=== PATIENT | female | born 1970 | race Caucasian/White ===

== ENCOUNTER 2018-12-28 08:59 | Inpatient (IN) | payer MEDICARE, OTHER ==
[~2018-12-28] VITALS: Ht 157.5 cm; Wt 93.7 kg
--- NOTE | 2018-12-28 08:59 | NUR ---
JOURNALISM INTERN: [facility] AV[facility] AND SENT STRAIGHT TO CT W/ SAMSON BEJARANO & PT ON MONITOR
--- NOTE | 2018-12-28 08:59 | NUR ---
48 YR OLD FEMALE ARRIVED VIA EMS, PER REPORT PT WAS RECEIVING CERVICAL FACET INJECTION. HAD RECEIVED 1 MG VERSED, 50MCG FENTANLY. PT HAD SYNCOPAL EPISODE LASTING APPROX 30 SECONDS. PER PROCEDURE REPORT PT HAD LEFT EYE DEVIATION, RT FACIAL DROOP, SLURRED SPEECH, NAUSE, DIZZINESS, BRAIN FEELS FUNNY. PT ARRIVED WITH 22G IN LEFT HAND, 18G, RFA. BS 187, GIVEN ZOFRAN IN ROUTE. PT STRAIGHT TO CT VIA GURNEY.
[2018-12-28] MEDS ORDERED: ONDANSETRON 2MG/ML, 2ML ONE ×2 (09:11→12:36)
--- NOTE | 2018-12-28 09:20 | NUR ---
PT RETURN TO ROOM, PT RETCHING, MEDICATED WITH ZOFRAN. DR SMITH AT BEDSIDE TO EVAL PT
[2018-12-28] MEDS ORDERED: ONDANSETRON 2MG/ML, 2ML IVPush ONE (09:30)
[2018-12-28] MEDS ORDERED: OMNIPAQUE 350 MG/ML, 100ML BOTTLE ONE (09:36)
--- NOTE | 2018-12-28 09:38 | NUR ---
NEUROLOGIST VIA TELE MONITOR TO LEVI RODRIGUEZ.
--- NOTE | 2018-12-28 09:58 | NUR ---
REPORT TO YAJAIRA MCKEON
[2018-12-28 09:59] LABS: BASOPHILS # (AUTO) 0.04 x10^3/uL (0-0.1); BASOPHILS % (AUTO) 0 % (0-1); EOSINOPHILS # (AUTO) 0.12 x10^3/uL (0-0.4); EOSINOPHILS % (AUTO) 1 % (1-7); LYMPHOCYTES # (AUTO) 1.17 x10^3/uL (1-3.4); LYMPHOCYTES % (AUTO) 14 % (22-44); MD NO; MEAN CORPUSCULAR HEMOGLOBIN 31.2 pg (27.0-34.8); MEAN CORPUSCULAR HGB CONC 34.2 g/dL (32.4-35.8); MEAN CORPUSCULAR VOLUME 91.3 fL (80-100); MONOCYTES # (AUTO) 0.35 x10^3/uL (0.2-0.8); MONOCYTES % (AUTO) 4 % (2-9); NEUTROPHILS # (AUTO) 6.88 x10^3/uL (1.8-6.8); NEUTROPHILS % (AUTO) 81 % (42-75); PLATELET COUNT 194 x10^3/uL (130-400); RED BLOOD COUNT 5.33 x10^6/uL (3.82-5.3); RED CELL DISTRIBUTION WIDTH 13.6 % (9.6-15.2)
[2018-12-28 10:04] LABS: INTERNATIONAL NORMALIZED RATIO 0.96 (0.93-1.1); PROTHROMBIN TIME 10.1 Seconds (9.6-11.5)
--- NOTE | 2018-12-28 10:05 | NUR ---
ASSUMED CARE OF PT AT THIS TIME. PT REPORTS MILD VASQEUZ NOW AND SYMPTOMS SEEM TO BE RESOLVING. PT REPORTED TO MOTHER ON THE PHONE, ""I AM COMING AROUND." PT SPEECH IS SLURRED STILL AND PER FATHER AT BEDSIDE SHE DOES NOT USUALLY SLUR HER SPEECH. PT SEEN BY NEUROLOGIST AND AWAITING FURTHER ORDERS.
[2018-12-28] MEDS ORDERED: KLONOPIN PO (10:19)
[2018-12-28] MEDS ORDERED: DIAZ5TAB PO (10:19)
[2018-12-28] MEDS ORDERED: TRAZ150T62 PO (10:19)
[2018-12-28] MEDS ORDERED: POTASSIUM PO (10:19)
[2018-12-28] MEDS ORDERED: CHOL5000 PO (10:19)
[2018-12-28] MEDS ORDERED: PROMETHAZINE 25 MG/ML, 1ML ONE ×2 (10:28→14:36)
[2018-12-28] MEDS ORDERED: FAMOTIDINE 20 MG/2 ML ONE (10:28)
[2018-12-28] MEDS ORDERED: FAMOTIDINE 20 MG/2 ML IVP ONE (10:30)
[2018-12-28] MEDS ORDERED: PROMETHAZINE 25 MG/ML, 1ML IM ONE (10:30)
--- NOTE | 2018-12-28 11:17 | NUR ---
PT TO HAVE MRI BUT DUE TO CLAUSTROPHOBIA, MRI TO BE DONE WITH ANESTHESIA AT 1330. PT TO BE ADMITTED TO FLOOR PRIOR. PT MOVED TO ROOM 25. PT VOIDED AND LINENS CHANGED. PHENERGAN SEEMS TO HAVE HELPED NAUSEA.
--- NOTE | 2018-12-28 11:24 | NUR ---
PT MOVED TO ROOM 26, REPORT RECEIVED, CARE ASSUMED.
[2018-12-28] MEDS ORDERED: SODIUM CHLORIDE FLUSH 10ML SYR IVF PRN (11:30)
--- NOTE | 2018-12-28 11:39 | NUR ---
PT STATES "FEELING BETTER." THEN STATES "I HAVE NEVER FELT THIS BAD BEFORE WITH THE INJECTIONS. I DONT KNOW WHAT HAPPENED" PT AND PTS DAD EFREN [phone] UP DATED ON POC. PT TO BE ADMITTED, WAITING FOR ROOM ASSIGNMENT, MRI ORDER. UNDERSTANDING VERBALIZED.
--- NOTE | 2018-12-28 12:25 | NUR ---
PT TO MRI VIA [facility].
[2018-12-28] MEDS ORDERED: PHENYLEPHRINE 10 MG/ML ONE (12:36)
[2018-12-28] MEDS ORDERED: PROPOFOL 10 MG/ML, 20ML ONE (12:36)
[2018-12-28] MEDS ORDERED: GADOBUTROL 10 MMOL/10 ML PFS ONE (13:41)
--- NOTE | 2018-12-28 13:51 | NUR ---
REPORT CALLED TO MALCOLM MCKEON, POC DISCUSSED. PT TO GO TO PACU AFTER MRI.
[2018-12-28] MEDS ORDERED: HALOPERIDOL 5 MG/ML ONE (14:17)
[2018-12-28] MEDS ORDERED: DIAZEPAM 5 MG/ML, 2ML IVPush PRN (14:30)
[2018-12-28] MEDS ORDERED: OXYcodone 5 MG/5 ML ORAL.SOL UDC PO PRN (14:30)
[2018-12-28] MEDS ORDERED: MEPERIDINE/PF 25MG/0.5ML IVPush PRN (14:30)
[2018-12-28] MEDS ORDERED: HALOPERIDOL 5 MG/ML IV PRN (14:30)
[2018-12-28] MEDS ORDERED: PROMETHAZINE 25 MG/ML, 1ML IV PRN (14:30)
[2018-12-28] MEDS ORDERED: FENTANYL PF 100 MCG/2ML IV PRN (14:30)
[2018-12-28] MEDS ORDERED: HYDROmorphone 2 MG/ML, 1ML IVPush PRN (14:30)
[2018-12-28] MEDS ORDERED: ONDANSETRON 2MG/ML, 2ML IVPush PRN (15:30)
[2018-12-28 15:37] VITALS: BP 139/76
[2018-12-28 16:10] LABS: HEMOGLOBIN A1C 5.5 % (4.2-6.3)
[2018-12-28 16:45] LABS: HCT (SEDRATE) 48.7 % (34.6-47.8)
[2018-12-28] MEDS: POTASSIUM CHLORIDE 20 MEQ in LACTATED RINGERS 1,000 ML IV SCH (17:25)
[2018-12-28 19:09] VITALS: BP 147/90
[2018-12-28] MEDS ORDERED: NITROGLYCERIN 0.4 MG BOTTLE (25 TABS) SL ONE (19:10)
[2018-12-28 19:26] VITALS: BP 128/80
[2018-12-28] MEDS ORDERED: NITROGLYCERIN 0.4 MG BOTTLE (25 TABS) SL PRN (19:30)
[2018-12-28 20:04] LABS: TROPONIN I 0.564 ng/mL (0.000-0.045)
[2018-12-28] MEDS ORDERED: morphine SULFATE 10 MG/ML, 1ML IVPush ONE (21:00)
[2018-12-28] MEDS: TRAZODONE 150MG TABLET PO SCH (21:55)
[2018-12-28] MEDS: PROMETHAZINE 25 MG/ML, 1ML IM PRN (21:55)
[2018-12-29 01:34] LABS: MEAN CORPUSCULAR HEMOGLOBIN 30.9 pg (27.0-34.8); MEAN CORPUSCULAR HGB CONC 33.1 g/dL (32.4-35.8); MEAN CORPUSCULAR VOLUME 93.3 fL (80-100); MEAN PLATELET VOLUME 9.1 fL (7.4-10.4); PLATELET COUNT 248 x10^3/uL (130-400); RED BLOOD COUNT 5.47 x10^6/uL (3.82-5.3); RED CELL DISTRIBUTION WIDTH 13.9 % (9.6-15.2)
[2018-12-29 01:39] VITALS: BP 130/76
[2018-12-29 01:44] LABS: ALBUMIN 4.1 g/dL (3.4-5.0); ANION GAP 7 mmol/L (5-15); CALCIUM 8.9 mg/dL (8.5-10.1); CHLORIDE 109 mmol/L (98-107)
[2018-12-29 01:47] LABS: ALANINE AMINOTRANSFERASE 23 U/L (12-78); ALKALINE PHOSPHATASE 110 U/L (45-117); BILIRUBIN,TOTAL 0.6 mg/dL (0.2-1.0); CREATININE 0.66 mg/dL (0.55-1.02); TOTAL PROTEIN 7.3 g/dL (6.4-8.2)
[2018-12-29 01:53] LABS: BASOPHILS # (AUTO) 0.02 x10^3/uL (0-0.1); BASOPHILS % (AUTO) 0 % (0-1); EOSINOPHILS % (AUTO) 0 % (1-7); LYMPHOCYTES # (AUTO) 0.64 x10^3/uL (1-3.4); LYMPHOCYTES % (AUTO) 4 % (22-44); MD NO; MONOCYTES # (AUTO) 0.85 x10^3/uL (0.2-0.8); MONOCYTES % (AUTO) 6 % (2-9); NEUTROPHILS # (AUTO) 13.97 x10^3/uL (1.8-6.8); NEUTROPHILS % (AUTO) 90 % (42-75)
[2018-12-29] MEDS ORDERED: NITROGLYCERIN 0.4 MG BOTTLE (25 TABS) SL PRN (02:30)
[2018-12-29] MEDS ORDERED: HEPARIN 5,000 UNITS/ML, 1ML IV ONE (02:30)
[2018-12-29] MEDS: ASPIRIN 325 MG TABLET EC PO SCH ×3 (03:57→22:22)
[2018-12-29] MEDS: HEPARIN 25,000 UNITS/500ML PMX 500 ML IV PRN (03:57)
[2018-12-29] MEDS: PROMETHAZINE 25 MG/ML, 1ML IM PRN ×3 (04:24→20:09)
[2018-12-29] MEDS ORDERED: PANTOPRAZOLE 40 MG IV IVPush SCH (07:30)
[2018-12-29 08:21] VITALS: BP 110/66
[2018-12-29] MEDS: CHOLECALCIFEROL 5,000u TAB PO SCH (09:15)
[2018-12-29] MEDS: HEPARIN 5,000 UNITS/ML, 1ML IV PRN ×2 (10:18→17:05)
[2018-12-29 14:02] VITALS: BP 114/63
[2018-12-29] MEDS: POTASSIUM CHLORIDE 20 MEQ in LACTATED RINGERS 1,000 ML IV SCH (14:54)
[2018-12-29] MEDS: TRAZODONE 150MG TABLET PO SCH (20:27)
[2018-12-29] MEDS ORDERED: ATORVASTATIN 40 MG TABLET PO SCH (21:00)
[2018-12-29 21:08] VITALS: BP 112/78
[2018-12-30 02:15] VITALS: BP 115/78
[2018-12-30] MEDS ORDERED: PANTOPROZOLE 40MG TABLET PO SCH (06:00)
[2018-12-30] MEDS: POTASSIUM CHLORIDE 20 MEQ in LACTATED RINGERS 1,000 ML IV SCH (06:06)
[2018-12-30] MEDS: HEPARIN 25,000 UNITS/500ML PMX 500 ML IV PRN (06:25)
[2018-12-30] MEDS: HEPARIN 5,000 UNITS/ML, 1ML IV PRN (07:44)
[2018-12-30 08:05] VITALS: BP 128/86
[2018-12-30] MEDS ORDERED: REGADENOSON 0.4 MG/5 ML SYRINGE ONE (08:56)
[2018-12-30 09:24] LABS: BASOPHILS # (AUTO) 0.03 x10^3/uL (0-0.1); BASOPHILS % (AUTO) 0 % (0-1); EOSINOPHILS # (AUTO) 0.06 x10^3/uL (0-0.4); EOSINOPHILS % (AUTO) 1 % (1-7); LYMPHOCYTES % (AUTO) 26 % (22-44); MD NO; MEAN CORPUSCULAR HEMOGLOBIN 30.4 pg (27.0-34.8); MEAN CORPUSCULAR HGB CONC 32.9 g/dL (32.4-35.8); MEAN CORPUSCULAR VOLUME 92.3 fL (80-100); MEAN PLATELET VOLUME 8.8 fL (7.4-10.4); MONOCYTES # (AUTO) 0.73 x10^3/uL (0.2-0.8); MONOCYTES % (AUTO) 8 % (2-9); NEUTROPHILS # (AUTO) 6.47 x10^3/uL (1.8-6.8); NEUTROPHILS % (AUTO) 66 % (42-75); PLATELET COUNT 194 x10^3/uL (130-400); RED BLOOD COUNT 5.43 x10^6/uL (3.82-5.3); RED CELL DISTRIBUTION WIDTH 13.9 % (9.6-15.2)
[2018-12-30 09:34] LABS: ANION GAP 8 mmol/L (5-15); CALCIUM 8.3 mg/dL (8.5-10.1); CHLORIDE 111 mmol/L (98-107); CREATININE 0.56 mg/dL (0.55-1.02)
[2018-12-30] MEDS: CHOLECALCIFEROL 5,000u TAB PO SCH (12:46)
[2018-12-30 14:36] VITALS: BP 128/84
[2018-12-30] MEDS ORDERED: CLOPIDOGREL 75 MG TABLET PO SCH (15:00)
[2018-12-30] MEDS ORDERED: ASPIRIN 81 MG TABLET CHEW PO SCH (15:00)
[2018-12-30] MEDS ORDERED: ASPI-515 PO (15:06)
[2018-12-30] MEDS ORDERED: NITR0.4T SL (15:06)
[2018-12-30] MEDS ORDERED: ATOR40TA78 PO (15:06)
[2018-12-30] MEDS ORDERED: CLOP75TA PO (15:06)
[2018-12-30] MEDS ORDERED: METO25TA2 PO (15:06)
[2018-12-30] MEDS ORDERED: METOPROLOL SUCCINATE 25 MG TAB.ER.24H PO ONE (15:30)
== END 2018-12-30 17:24 | disposition home or self-care (01) | DRG 59 ==
LOC: ED 11:35 → EDIP 11:36 → 4WST 15:26
PROVIDERS: ADMIT Hospitalist; ATTEND Hospitalist
DX: G35 Multiple sclerosis (principal); I42.9 Cardiomyopathy, unspecified; G37.9 Demyelinating disease of central nervous system, unspecified; E11.43 Type 2 diabetes mellitus with diabetic autonomic (poly)neuropathy; E66.9 Obesity, unspecified; F12.90 Cannabis use, unspecified, uncomplicated; G47.00 Insomnia, unspecified; G89.4 Chronic pain syndrome; H51.8 Other specified disorders of binocular movement; H55.00 Unspecified nystagmus; J32.0 Chronic maxillary sinusitis; K31.84 Gastroparesis; M48.02 Spinal stenosis, cervical region; R29.810 Facial weakness; Z79.02 Long term (current) use of antithrombotics/antiplatelets; Z79.82 Long term (current) use of aspirin; Z79.899 Other long term (current) drug therapy; Z82.49 Family history of ischemic heart disease and other diseases of the circulatory system; Z87.891 Personal history of nicotine dependence; Z83.3 Family history of diabetes mellitus; Z68.37 Body mass index [BMI] 37.0-37.9, adult; Z88.5 Allergy status to narcotic agent; Z98.1 Arthrodesis status
CPT/HCPCS: 36415; 70450; 70496; 70498; 70551; 70552; 72156; 78452; 80047; 80048; 80053; 82962; 83036; 84443; 84484; 85025; 85520; 85610; 85651; 85730; 93005; 93017; 93306; 96372; 96374; 96375; 99291; A9585; G0378; J1644; J2405; J2550; J2704; J2785; J3480; Q9967; A9502; C9113; C9898; J1630; J2270; J2370; J3490; J7120